=== PATIENT | male | born 1995 | race Caucasian/White ===

== ENCOUNTER 2017-08-04 10:58 | Emergency (ER) | payer MEDICAID ==
[2017-08-04 11:11] VITALS: BP 131/74
--- NOTE | 2017-08-04 11:29 | ED Physician Documentation ---
PD HPI URI - Stated complaint Stated Complaint: SORE THROAT - Chief complaint Chief Complaint: Heent - History obtained from History obtained from: Patient - History of Present Illness Timing - onset: How many weeks ago (3-4) Timing duration: Weeks (3-4) Timing details: Waxing and waning Associated symptoms: Chills, Nasal congestion, Sinus pain, Sore throat, Dry cough Contributing factors: No: Sick contact, Travel Similar symptoms before: Has not had sx before Recently seen: Not recently seen Review of Systems Constitutional: reports: Fever (few days ago, and intermittently for the past month), Chills, Myalgias Nose: reports: Rhinorrhea / runny nose, Congestion, Sinus pressure / pain Throat: reports: Sore throat Respiratory: reports: Cough GI: denies: Nausea, Vomiting, Diarrhea Skin: reports: Lesions (left side of nose irritation from wiping it often.). denies: Rash Neurologic: reports: Generalized weakness. denies: Focal weakness, Numbness, Near syncope PD PAST MEDICAL HISTORY - Past Medical History Past Medical History: Yes Respiratory: None Neuro: None Psych: Anxiety - Past Surgical History Past Surgical History: No - Present Medications Home Medications: Ambulatory Orders Medication Instructions Recorded Confirmed Cephalexin [Keflex] 500 mg PO TID #21 capsule 08/04/17 Cetirizine [ZyrTEC] 10 mg PO DAILY #20 tablet 08/04/17 Dexamethasone [Decadron] 4 mg PO DAILY #5 tablet 08/04/17 - Allergies Allergies/Adverse Reactions: Allergies Allergy/AdvReac Type Severity Reaction Status Date / Time No Known Drug Allergies Allergy Verified 08/04/17 11:05 - Social History Does the pt smoke?: Yes Smoking Status: Current every day smoker Does the pt drink ETOH?: No Does the pt have substance abuse?: No - Immunizations Immunizations are current?: Yes Immunizations: Other immun current - POLST Patient has POLST: No PD ED PE NORMAL - Vitals Vital signs reviewed: Yes - General General: Alert and oriented X 3, No acute distress, Well developed/nourished - HEENT HEENT: Ears normal, Moist mucous membranes, Pharynx benign, Other (frontal sinus tender to percussion. ) - Neck Neck: Supple, no meningeal sign, Other (mild anterior adenopathy, more to the left. ) - Cardiac Cardiac: RRR, No murmur - Respiratory Respiratory: Clear bilaterally - Abdomen Abdomen: Soft, Non tender - Derm Derm: Normal color, Warm and dry Results - Vitals Vitals: Vital Signs - 24 hr 08/04/17 11:04 Temperature 36.2 C L Heart Rate 98 Respiratory 18 Rate Blood Pressure 131/74 H O2 Saturation 99 Oxygen O2 Source Room air - Labs Labs: Laboratory Tests 08/04/17 11:10 Group A Strep Rapid Negative PD MEDICAL DECISION MAKING - ED course Complexity details: considered differential, d/w patient Departure - Departure Disposition: Home, Self Care Clinical Impression: Acute sinusitis Qualifiers: Sinusitis location: unspecified location Recurrence: non-recurrent Qualified Code(s): J01.90 - Acute sinusitis, unspecified Condition: Stable Record reviewed to determine appropriate education?: Yes Instructions: ED Sinusitis Abx Tx Follow-Up: Gregorio Bennett MD [Primary Care Provider] - Prescriptions: Cephalexin [Keflex] 500 mg PO TID #21 capsule Cetirizine [ZyrTEC] 10 mg PO DAILY #20 tablet Dexamethasone [Decadron] 4 mg PO DAILY #5 tablet Comments: Drink lots of fluids. He can use some saline nose spray several times a day up the nostrils to cleanse out the congestion. Cephalexin antibiotic 3 times a day for a week as directed. Add Decadron steroid anti-inflammatory daily for 5 more days. Use antihistamine cetirizine daily for the next couple of weeks. Recheck if not improving over the next several days to week. Discharge Date/Time: 08/04/17 12:09
[2017-08-04] MEDS ORDERED: DEXAMETHASONE 10 MG/ML VIAL PO STA (11:42)
[2017-08-04] MEDS ORDERED: cephALEXin 250 MG CAPSULE PO STA (11:42)
[2017-08-04] MEDS ORDERED: CHERRY SYRUP 10 ML UDC PO ONE (11:57)
== END 2017-08-04 12:09 | disposition home or self-care (01) ==
LOC: ED 10:58
DX: J01.90 Acute sinusitis, unspecified (principal); F17.200 Nicotine dependence, unspecified, uncomplicated
CPT/HCPCS: 87070; 87430; 99283; A9270

== ENCOUNTER 2018-08-16 16:45 | Emergency (ER) | payer MEDICAID ==
[2018-08-16 16:56] VITALS: BP 121/69
--- NOTE | 2018-08-16 17:44 | ED Physician Documentation ---
PD HPI UPPER EXT INJURY - Stated complaint Stated Complaint: RT HAND/THUMB INJ - Chief complaint Chief Complaint: Ext Problem - History obtained from History obtained from: Patient - History of Present Illness Location: Right, Hand, Finger (he has had laxity at thumb joint from prior injury and hurts at times. Current issue is pain at flexors of fingers with flexion. He recently does lot of repetitive use with finger flexion and they have started hurting. No abrupt injury. Pain mainly right fingers/hand. Not hurting at wrist per se. Denies sudden release or getting stuck (like trigger finger) but more just stiff for movement, and feels like fingers spasm in flexed position and hard to straighten.) Type of injury: Other (reptitive use of hands, with gripping.) Where injury occurred: Work Timing - onset: How many weeks ago (couple of weeks, hoped it would improve but hasn't.) Timing - details: Gradual onset, Still present, Waxing and waning Worsened by: Moving. No: Palpating Associated symptoms: No: Weakness, Numbness, Swelling Similar symptoms before: Has not had sx before Recently seen: Not recently seen Review of Systems Constitutional: denies: Fever, Chills, Myalgias Nose: denies: Rhinorrhea / runny nose, Congestion Throat: denies: Sore throat Respiratory: denies: Cough Skin: denies: Rash, Lesions PD PAST MEDICAL HISTORY - Past Medical History Respiratory: None Psych: Anxiety Musculoskeletal: None - Past Surgical History Past Surgical History: No - Present Medications Home Medications: Ambulatory Orders Medication Instructions Recorded Confirmed Dexamethasone [Decadron] 4 mg PO DAILY #5 tablet 08/16/18 Naproxen 500 mg PO BID #20 tablet 08/16/18 - Allergies Allergies/Adverse Reactions: Allergies Allergy/AdvReac Type Severity Reaction Status Date / Time No Known Drug Allergies Allergy Verified 08/16/18 16:55 - Social History Does the pt smoke?: Yes Smoking Status: Current every day smoker Does the pt drink ETOH?: No Does the pt have substance abuse?: No - Immunizations Immunizations are current?: Yes Immunizations: Other immun current - POLST Patient has POLST: No PD ED PE NORMAL - Vitals Vital signs reviewed: Yes - General General: Alert and oriented X 3, No acute distress, Well developed/nourished - Derm Derm: Normal color, Warm and dry - Extremities Extremities: Other (right thumb with laxity at MCP c/w prior UCL injury and not healed. No tenderness really there. Current tenderness in at palmar finger index/middle/ring at the DIP areas without rash nor sores. No crepitance. No clicking. Some tender to palm area. ) Results - Vitals Vitals: Oxygen O2 Source Room air PD MEDICAL DECISION MAKING - ED course Complexity details: considered differential (seems like tendonitis, without abrupt injury, but does repetitive use. ), d/w patient Departure - Departure Disposition: 01 Home, Self Care Clinical Impression: Right hand tendonitis Condition: Stable Record reviewed to determine appropriate education?: Yes Instructions: Tendonitis and Tenosynovitis Follow-Up: Gregorio Bennett MD [Primary Care Provider] - Crow Banerjee MD [Provider Admit Priv/Credential] - Prescriptions: Dexamethasone [Decadron] 4 mg PO DAILY #5 tablet Naproxen 500 mg PO BID #20 tablet Comments: Try to minimize repetitive and vigorous use of the hand and fingers release limited to just what you need to do such as at work. Use some anti- inflammatories such as naproxen or ibuprofen twice daily for the next 7-10 days. You can add Decadron steroid anti-inflammatory as well for the next several days. See if that allows it to improve and go away. If not follow-up with your primary care or orthopedics for further evaluation or treatment. Discharge Date/Time: 08/16/18 19:00
[2018-08-16] MEDS ORDERED: DEXAMETHASONE 10 MG/ML VIAL PO STA (18:44)
[2018-08-16] MEDS ORDERED: NAPROXEN 250 MG TABLET PO STA (18:44)
[2018-08-16] MEDS ORDERED: CHERRY SYRUP 10 ML UDC PO ONE (18:57)
== END 2018-08-16 19:00 | disposition home or self-care (01) ==
LOC: ED 16:45
DX: M70.841 Other soft tissue disorders related to use, overuse and pressure, right hand (principal); X50.3XXA Overexertion from repetitive movements, initial encounter; Y93.89 Activity, other specified; Y99.0 Civilian activity done for income or pay; F17.200 Nicotine dependence, unspecified, uncomplicated
CPT/HCPCS: 99283; A9270

== ENCOUNTER 2022-09-03 19:55 | Outpatient (CLI) | payer BC, OTHER ==
--- NOTE | 2022-09-04 17:24 | XRAY Report ---
PROCEDURE: Hand 3 View RT INDICATIONS: JOINT PAIN IN RIGHT HAND TECHNIQUE: 3 views of the hand(s) acquired. COMPARISON: None FINDINGS: Bones: No fractures or dislocations. No suspicious bony lesions. Soft tissues: No suspicious soft tissue calcifications. IMPRESSION: Unremarkable radiographic examination of right hand. Reviewed by: Basil Rodriguez MD on 09/04/2022 5:23 PM PDT Approved by: Basil Rodriguez MD on 09/04/2022 5:23 PM PDT Station ID: [id number]
== END 2022-09-03 19:56 | disposition home or self-care (01) ==
LOC: DI 19:55
PROVIDERS: ATTEND Registered Nurse
DX: M25.541 Pain in joints of right hand (principal)

== ENCOUNTER 2022-09-24 14:08 | Outpatient (CLI) | payer BC ==
--- NOTE | 2022-09-24 09:49 | XRAY Report ---
PROCEDURE: Hand 3 View RT INDICATIONS: RIGHT HAND 3RD MC FRACTURE TECHNIQUE: 3 views of the hand(s) acquired. COMPARISON: None. FINDINGS: Bones: No fractures or dislocations. No suspicious bony lesions. Soft tissues: No suspicious soft tissue calcifications or masses. IMPRESSION: No acute bony abnormality. If pain persists with conservative management, consider repeat radiographs in 10-14 days or cross-sectional imaging. Reviewed by: Adama Michel on 09/24/2022 9:48 AM PDT Approved by: Adama Michel on 09/24/2022 9:48 AM PDT Station ID: [id number]
== END 2022-09-24 14:09 | disposition home or self-care (01) ==
LOC: DI.WOS 14:08
PROVIDERS: ATTEND Physician Assistant Surgical
DX: S62.312A Displaced fracture of base of third metacarpal bone, right hand, initial encounter for closed fracture (principal)